=== PATIENT | male | born 1985 | race African-American/Black ===

== ENCOUNTER 2016-09-06 18:13 | Emergency (ER) | payer MEDICAID ==
[~2016-09-06 18:13] MED LIST: ANAFRANIL50 M1 PO; ANASTROZOLE1 M1 PO; ATIVAN0.5 MG PO; CATAFLAM50 MG PO; CURCUMIN PO; DIGESTIVE ENZY1 EAC3 PO; FISH OIL 11000 MG/CA PO; FLEXERIL10 MG PO; FORMULA PO; MULTIVITAMINS1 EAC6 PO; VITAMIN D-32000 UNI3 PO
== END 2016-09-06 20:22 | disposition left against medical advice (07) ==
LOC: EDMED 18:13
DX: Z53.21 Procedure and treatment not carried out due to patient leaving prior to being seen by health care provider (principal)